=== PATIENT | female | born 2000 | race Caucasian/White ===

== ENCOUNTER 2021-04-23 11:56 | Emergency (ER) | payer BC, SELFPAY ==
[2021-04-23 12:19] VITALS: BP 120/85; PULSE 76; RESP 16; TEMP 37.3; O2SAT 100
--- NOTE | 2021-04-23 13:25 | ED_ITS ---
HPI - URI/Sore Throat General Chief Complaint: Upper Respiratory Infection Stated Complaint: sore throat headache dizzy Time Seen by Provider: 04/23/21 13:20 Source: patient, family and RN notes reviewed Mode of arrival: ambulatory Limitations: no limitations Related Data Allergies Allergy/AdvReac Type Severity Reaction Status Date / Time No Known Allergies Allergy Unverified 04/23/21 12:47 [facility] Family History Family History (Updated 11/19/15 @ 08:12 by DOCTOR UNKNOWN) Other Family history of cardiovascular disease Family history of malignant neoplasm of breast Social History Social History Smoking status: Never smoker Alcohol intake: never Course Vital Signs Vital signs: Vital Signs Temperature 37.3 C 04/23/21 12:19 Pulse Rate 76 04/23/21 12:19 Respiratory Rate 16 04/23/21 12:19 Blood Pressure 120/85 04/23/21 12:19 Pulse Oximetry 100 04/23/21 12:19 Temperature 37.3 C 04/23/21 12:19 Pulse Rate 76 04/23/21 12:19 Respiratory Rate 16 04/23/21 12:19 Blood Pressure 120/85 04/23/21 12:19 Pulse Oximetry 100 04/23/21 12:19 MDM - URI/Sore Throat Lab Data Labs: Influenza A Screen Negative Reference Range: Negative Influenza B Screen Negative Reference Range: Negative Strep Screen Presumptive Negative *(Reference Range: Negative)* Mitchell Screen Negative (Reference Range: Negative) Discharge Plan Discharge Clinical Impression: Pharyngitis Qualifiers: Pharyngitis/tonsillitis etiology: other specified organisms Qualified Code(s): J02.8 - Acute pharyngitis due to other specified organisms Patient Disposition: Home, Self-Care Condition: Stable Instructions: Antibiotic Form, Pharyngitis (ED) Additional Instructions: Increase fluids. Motrin or Tylenol for fever or pain. May take OTC cold medication as directed. Nataliya's rapid strep swab was negative today at [facility]. You will be notified in a few days if the culture comes back positive for strep, and appropriate antibiotics will be called in for her at that time. Your symptoms are likely due to a viral illness, which is not treated with antibiotics. Viral symptoms can be present for up to 10-14 days. . Rest and stay hydrated. Follow up with your PCP in 3-5 days if symptoms are not improving, or sooner if symptoms are worsening. Patient Language: Cymraes Prescriptions: New prednisone 50 mg tablet 50 mg PO DAILY 5 Days Qty: 5 RF: 0 Follow-up/Referrals: Santiago,Kelsea Ascencio MD [Primary Care Provider] - Time of Disposition: 13:27
== END 2021-04-23 13:30 | disposition home or self-care (01) ==
PROVIDERS: Emergency Provider Nurse Practitioner Family; PCP Pediatrics Pediatric Emergency Medicine
DX: J02.8 Acute pharyngitis due to other specified organisms (principal); Z20.822 Contact with and (suspected) exposure to COVID-19
CPT/HCPCS: 36416; 86308; 87081; 87426; 87804; 87880; 99203; C9803; G0463